=== PATIENT | male | born 1945 | race Caucasian/White ===

== ENCOUNTER 2020-11-27 13:36 | Outpatient (CLI) | payer OTHER ==
[~2020-11-27 13:36] MED LIST: ALPR1TAB2 PO
[2020-11-27] MEDS ORDERED: ALPRazolam 1MG TAB ONE (14:16)
== END 2020-11-27 23:59 | disposition home or self-care (01) ==
LOC: RAD 13:36
PROVIDERS: ATTEND Nurse Practitioner Primary Care
DX: S83.511A Sprain of anterior cruciate ligament of right knee, initial encounter (principal); M17.11 Unilateral primary osteoarthritis, right knee; M25.461 Effusion, right knee; M25.761 Osteophyte, right knee; X58.XXXA Exposure to other specified factors, initial encounter; Y93.89 Activity, other specified; Y92.89 Other specified places as the place of occurrence of the external cause; Y99.8 Other external cause status